=== PATIENT | male | born 1945 | race Caucasian/White ===

== ENCOUNTER 2016-10-28 09:11 | Emergency (ER) | payer OTHER, MEDICARE ==
[~2016-10-28] VITALS: Ht 182.9 cm; Wt 125.0 kg
[2016-10-28 09:13] VITALS: BP 228/118; PULSE 78; RESP 15; TEMP 98.2; O2SAT 98
[2016-10-28 09:24] VITALS: BP 225/119; PULSE 96; RESP 16; TEMP 98.5; O2SAT 95
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
[2016-10-28 11:09] VITALS: BP 170/81; PULSE 83; RESP 16; O2SAT 94
[2016-10-28] MEDS ORDERED: EXTR500C PO (12:43)
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
== END 2016-10-28 14:51 | disposition home or self-care (01) ==
LOC: NEPE 09:11
DX: M25.562 Pain in left knee (principal); M54.2 Cervicalgia; R03.0 Elevated blood-pressure reading, without diagnosis of hypertension; V43.52XA Car driver injured in collision with other type car in traffic accident, initial encounter; Y93.89 Activity, other specified; Y92.410 Unspecified street and highway as the place of occurrence of the external cause
CPT/HCPCS: 72040; 73560; 99283; L1830